=== PATIENT | male | born 1985 | race American Indian/Alaskan Native ===

== ENCOUNTER 2016-10-31 00:53 | Emergency (ER) | payer SELFPAY ==
[2016-10-31 02:18] LABS: Basophils % (Auto) 1.1 % (0.0-1.8); Eosinophils % (Auto) 0.5 % (0.0-4.3); Hematocrit 47.7 % (35.5-45.6); Hemoglobin 16.2 gm/dl (11.8-15.2); Mean Corpuscular HGB Conc 34 % (32-34); Mean Corpuscular Hemoglobin 31 pg (28-32); Mean Corpuscular Volume 93 fl (84-94); Red Blood Count 5.15 M/mm3 (3.65-5.03); Red Cell Distribution Width 13.7 % (13.2-15.2)
[2016-10-31 02:51] LABS: Platelet Count 169 K/mm3 (140-440)
[2016-10-31 03:01] LABS: Alanine Aminotransferase 14 units/L (7-56); Albumin 4.5 g/dL (3.9-5); Albumin/Globulin Ratio 1.6 %; Alkaline Phosphatase 108 units/L (35-129); Anion Gap 19 mmol/L; BUN/Creatinine Ratio 13.75; Blood Urea Nitrogen 11 mg/dL (9-20); Calcium 9.5 mg/dL (8.4-10.2); Carbon Dioxide 27 mmol/L (22-30); Chloride 93.3 mmol/L (98-107); Glucose 103 mg/dL (75-100); Lipase 12 units/L (13-60); Potassium 3.5 mmol/L (3.6-5.0); Sodium 136 mmol/L (137-145); Total Protein 7.3 g/dL (6.3-8.2)
[2016-10-31 03:50] LABS: Bilirubin,Urine NEG (Negative); Blood,Urine SM (Negative); Ketones,Urine 20 mg/dL (Negative); Leukocyte Esterase,Urine MOD (Negative); Mucus,Urine 1+ /HPF; Nitrite,Urine NEG (Negative); Protein,Urine <15 mg/dL mg/dL (Negative)
[2016-10-31 05:24] VITALS: BP 108/72
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
--- NOTE | 2016-11-02 00:58 | ED Elopement Review ---
ED Pt Elopement review - Results review Lab results: Laboratory Tests 10/31/16 10/31/16 10/31/16 01:49 01:49 03:05 WBC 9.0 RBC 5.15 H Hgb 16.2 H Hct 47.7 H MCV 93 MCH 31 MCHC 34 RDW 13.7 Plt Count 169 Lymph % (Auto) 34.7 [place] % (Auto) 10.8 H Eos % (Auto) 0.5 Baso % (Auto) 1.1 Lymph # 3.1 [place] # 1.0 H Eos # 0.0 Baso # 0.1 Seg Neutrophils % 52.9 Seg Neutrophils # 4.8 Sodium 136 L Potassium 3.5 L Chloride 93.3 L Carbon Dioxide 27 Anion Gap 19 BUN 11 Creatinine 0.8 Estimated GFR > 60 BUN/Creatinine Ratio 13.75 Glucose 103 H Calcium 9.5 Total Bilirubin 2.20 H AST 15 ALT 14 Alkaline Phosphatase 108 Total Protein 7.3 Albumin 4.5 Albumin/Globulin Ratio 1.6 Lipase 12 L Urine Color Yellow Urine Turbidity Clear Urine pH 6.0 Ur Specific [place] 1.014 Urine Protein <15 mg/dl Urine Glucose (UA) Neg Urine Ketones 20 Urine Blood Sm Urine Nitrite Neg Urine Bilirubin Neg Urine Urobilinogen 4.0 Ur Leukocyte Esterase Mod Urine WBC (Auto) 18.0 H Urine RBC (Auto) 2.0 U Epithel Cells (Auto) < 1.0 Urine Mucus 1+ - Call Back decision Pt Call Back Decision: Pt to F/U with PMD (patient follow up for further evaluation of elevated total bilirubin)
== END 2016-10-31 11:10 | disposition left against medical advice (07) ==
LOC: ED 00:53
DX: R11.2 Nausea with vomiting, unspecified (principal); R10.9 Unspecified abdominal pain; F17.200 Nicotine dependence, unspecified, uncomplicated; Z53.21 Procedure and treatment not carried out due to patient leaving prior to being seen by health care provider
CPT/HCPCS: 36415; 74020; 80053; 81001; 83690; 85025

== ENCOUNTER 2016-11-25 21:46 | Emergency (ER) | payer SELFPAY ==
[2016-11-25] MEDS ORDERED: MORPHINE IV ONE (23:00)
[2016-11-25] MEDS ORDERED: NACL 0.9% 1000 ML 1,000 ML IV ONE (23:00)
[2016-11-25] MEDS ORDERED: ZOFRAN IV ONE (23:00)
[2016-11-25 23:16] LABS: Basophils % (Auto) 0.5 % (0.0-1.8); Hematocrit 46.2 % (35.5-45.6); Hemoglobin 15.5 gm/dl (11.8-15.2); Mean Corpuscular HGB Conc 34 % (32-34); Mean Corpuscular Hemoglobin 32 pg (28-32); Mean Corpuscular Volume 94 fl (84-94); Platelet Count 170 K/mm3 (140-440); Red Cell Distribution Width 13.9 % (13.2-15.2); White Blood Count 8.5 K/mm3 (4.5-11.0)
[2016-11-25 23:26] LABS: Alanine Aminotransferase 12 units/L (7-56); Albumin 4.6 g/dL (3.9-5); Albumin/Globulin Ratio 1.3 %; Alkaline Phosphatase 97 units/L (35-129); Anion Gap 23 mmol/L; Blood Urea Nitrogen 16 mg/dL (9-20); Calcium 9.7 mg/dL (8.4-10.2); Carbon Dioxide 19 mmol/L (22-30); Chloride 95.9 mmol/L (98-107); Glucose 102 mg/dL (75-100); Lipase 14 units/L (13-60); Potassium 3.8 mmol/L (3.6-5.0); Sodium 134 mmol/L (137-145); Total Protein 8.2 g/dL (6.3-8.2)
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
[2016-11-26] MEDS ORDERED: PEPCID IV ONE (00:24)
[2016-11-26 00:58] LABS: INR 1.06 (0.87-1.13); Partial Thromboplastin Time 27.1 Sec. (24.2-36.6)
--- NOTE | 2016-11-26 02:11 | XRay Report ---
FINAL REPORT PROCEDURE: XR ABD SERIES W CXR 1V TECHNIQUE: Abdominal series complete, including supine and upright AP views of the abdomen and frontal chest. HISTORY: Diffuse abd pain COMPARISON: No prior studies are available for comparison. FINDINGS: Heart: Normal. Mediastinum/Vessels: Normal. Lungs/Pleural space: Normal. Bowel gas pattern: Nonobstructive. Masses or calcifications: There is a metallic density overlying the left sacral base region.. Bony structures: No acute osseous abnormality. Other: No free intraperitoneal air. IMPRESSION: No acute abnormality.
[2016-11-26 02:48] VITALS: BP 114/70
== END 2016-11-26 02:47 | disposition home or self-care (01) ==
LOC: ED 21:46
DX: R10.12 Left upper quadrant pain (principal); F17.200 Nicotine dependence, unspecified, uncomplicated; F12.10 Cannabis abuse, uncomplicated
CPT/HCPCS: 36415; 74022; 80053; 83690; 85025; 85610; 85730; 96361; 96374; 96375; 99284; J2270; J2405; J7030

== ENCOUNTER 2017-02-23 10:48 | Emergency (ER) | payer SELFPAY ==
[2017-02-23 11:57] LABS: Eosinophils % (Auto) 0.2 % (0.0-4.3); Hematocrit 45.2 % (35.5-45.6); Hemoglobin 15.5 gm/dl (11.8-15.2); Mean Corpuscular HGB Conc 34 % (32-34); Mean Corpuscular Hemoglobin 32 pg (28-32); Mean Corpuscular Volume 94 fl (84-94); Red Blood Count 4.78 M/mm3 (3.65-5.03); Red Cell Distribution Width 14.2 % (13.2-15.2); White Blood Count 7.8 K/mm3 (4.5-11.0)
[2017-02-23 12:01] LABS: Platelet Count 149 K/mm3 (140-440)
[2017-02-23 12:16] LABS: Alanine Aminotransferase 11 units/L (7-56); Albumin 4.1 g/dL (3.9-5); Albumin/Globulin Ratio 1.2 %; Alkaline Phosphatase 82 units/L (35-129); Anion Gap 17 mmol/L; BUN/Creatinine Ratio 24.28; Blood Urea Nitrogen 17 mg/dL (9-20); Calcium 8.8 mg/dL (8.4-10.2); Carbon Dioxide 25 mmol/L (22-30); Chloride 94.7 mmol/L (98-107); Glucose 92 mg/dL (75-100); Lipase 15 units/L (13-60); Sodium 133 mmol/L (137-145); Total Protein 7.4 g/dL (6.3-8.2)
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
[2017-02-23] MEDS ORDERED: MORPHINE IV ONE (12:35)
[2017-02-23] MEDS ORDERED: ZOFRAN IV ONE ×2 (12:35→16:54)
[2017-02-23 12:51] LABS: Bacteria,Urine 3+ /HPF (Negative); Bilirubin,Urine NEG (Negative); Blood,Urine NEG (Negative); Ketones,Urine 20 mg/dL (Negative); Leukocyte Esterase,Urine SM (Negative); Mucus,Urine FEW /HPF; Nitrite,Urine NEG (Negative); Protein,Urine <15 mg/dL mg/dL (Negative)
[2017-02-23] MEDS ORDERED: NACL ONE (15:36)
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
[2017-02-23 17:45] VITALS: BP 120/81
== END 2017-02-23 18:50 | disposition home or self-care (01) ==
LOC: ED 10:48
DX: E87.1 Hypo-osmolality and hyponatremia (principal); R10.84 Generalized abdominal pain; F17.200 Nicotine dependence, unspecified, uncomplicated; F12.10 Cannabis abuse, uncomplicated
CPT/HCPCS: 36415; 74177; 80053; 81001; 82140; 83690; 85025; 96374; 96375; 96376; 99284; J2270; J2405; Q9967

== ENCOUNTER 2017-05-15 19:52 | Emergency (ER) | payer SELFPAY | END 2017-05-15 20:23 | disposition left against medical advice (07) | LOC: ED 19:52 | DX: R11.2 Nausea with vomiting, unspecified (principal); Z53.21 Procedure and treatment not carried out due to patient leaving prior to being seen by health care provider ==

== ENCOUNTER 2017-09-08 11:56 | Emergency (ER) | payer MEDICAID ==
[2017-09-08 13:37] LABS: Basophils # (Auto) 0.1 K/mm3 (0.0-0.1); Eosinophils % (Auto) 0.4 % (0.0-4.3); Hemoglobin 15.1 gm/dl (11.8-15.2); Lymphocytes % (Auto) 32.6 % (13.4-35.0); Mean Corpuscular HGB Conc 33 % (32-34); Mean Corpuscular Hemoglobin 31 pg (28-32); Mean Corpuscular Volume 93 fl (84-94); Monocytes # (Auto) 0.4 K/mm3 (0.0-0.8); Monocytes % (Auto) 5.9 % (0.0-7.3); Red Blood Count 4.82 M/mm3 (3.65-5.03); Red Cell Distribution Width 13.8 % (13.2-15.2)
[2017-09-08 13:54] LABS: BUN/Creatinine Ratio 16; Blood Urea Nitrogen 14 mg/dL (9-20); Calcium 9.4 mg/dL (8.4-10.2); Hemolysis Index 4
[2017-09-08] MEDS ORDERED: MORPHINE IV ONE ×2 (14:20)
[2017-09-08] MEDS ORDERED: ZOFRAN IV ONE (14:20)
[2017-09-08 14:41] LABS: Bilirubin,Urine NEG (Negative); Blood,Urine NEG (Negative); Color,Urine Yellow (Yellow); Protein,Urine <15 mg/dL mg/dL (Negative); Urobilinogen,Urine < 2.0 mg/dL (<2.0)
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
[2017-09-08] MEDS ORDERED: NACL 0.9% 1000 ML 1,000 ML IV ONE (15:00)
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
[2017-09-08 15:19] VITALS: BP 127/69
[2017-09-08 15:26] LABS: Platelet Count 174 K/mm3 (140-440)
--- NOTE | 2017-09-08 17:10 | Cat Scan Report ---
FINAL REPORT EXAM: CT ABDOMEN PELVIS W CON HISTORY: abd pain, constipation, urine retention TECHNIQUE: Axial images were performed from the lung bases to the pubic symphysis following IV contrast administration. Multiplanar reformats are performed on the acquisition scanner. Total exam DLP 1194.66 mGy-cm Comparison: 07/20/2015 at which time there asymmetric fluid-filled distended bowel loops in the left side of the abdomen without definite obstruction identified. FINDINGS: Clear lung bases. Normal enhancement and appearance of the liver, spleen, pancreas, gallbladder, bilateral adrenal glands, and bilateral kidneys. Moderately distended gallbladder. The gastric body is decompressed. The gastric fundus is mildly distended. Cannot assess the gastric wall. There is mild motion degradation. Normal enhancement of the mesenteric vessels and aorta. There are slightly hyperdense renal medullary calcifications without definite stone disease identified. These hyperdensities appear to be vascular. Pre contrast images would be helpful in further assessing that finding. There is no free air. There is diffuse fecal retention. There is a suture margin in the right lower quadrant. There is shrapnel overlying the left posterior ilium. Urinary bladder is decompressed with a Mcclure catheter. There is air within the diffusely thick-walled urinary bladder. Lack of peritoneal fat limits the evaluation of the bowel. There is diffuse fecal retention in the sigmoid colon. There are fluid-filled bowel loops cephalad to the bladder with poor contrast delineation in this location. Delayed images demonstrate normal contrast excretion from both kidneys and normal filling of the urinary bladder. IMPRESSION: Limited exam with paucity of peritoneal fat. Marked fecal retention. Diffusely thick-walled urinary bladder is decompressed by Mcclure catheter. Recommend cystoscopy. Poorly delineated fluid-filled small bowel above the urinary bladder in the midline. Significant fecal retention. No free air or free fluid. Suture margin right lower quadrant. Collapsed gastric body and antrum.
== END 2017-09-08 17:31 | disposition left against medical advice (07) ==
LOC: ED 11:56
DX: R33.9 Retention of urine, unspecified (principal); K59.00 Constipation, unspecified; F17.200 Nicotine dependence, unspecified, uncomplicated
CPT/HCPCS: 36415; 51702; 74019; 74177; 80048; 81001; 85025; 87086; 96361; 96374; 96375; 99285; J2270; J2405; J7030; Q9967

== ENCOUNTER → 2017-10-04 01:56 | Emergency (ER) | payer MEDICAID | END | disposition left against medical advice (07) | LOC: ED 01:56 | DX: Z53.21 Procedure and treatment not carried out due to patient leaving prior to being seen by health care provider (principal) ==

== ENCOUNTER 2017-10-28 00:21 | Emergency (ER) | payer MEDICAID ==
[2017-10-28 01:26] VITALS: BP 120/81
[2017-10-28] MEDS ORDERED: ZOFRAN ODT ONE (01:38)
[2017-10-28] MEDS ORDERED: ZOFRAN ODT PO ONE (01:40)
[2017-10-28 01:51] LABS: Basophils # (Auto) 0.1 K/mm3 (0.0-0.1); Basophils % (Auto) 1.1 % (0.0-1.8); Eosinophils % (Auto) 0.2 % (0.0-4.3); Hematocrit 46.8 % (35.5-45.6); Hemoglobin 16.2 gm/dl (11.8-15.2); Lymphocytes # (Auto) 2.3 K/mm3 (1.2-5.4); Lymphocytes % (Auto) 23.1 % (13.4-35.0); Mean Corpuscular HGB Conc 35 % (32-34); Mean Corpuscular Hemoglobin 32 pg (28-32); Mean Corpuscular Volume 93 fl (84-94); Monocytes # (Auto) 0.5 K/mm3 (0.0-0.8); Monocytes % (Auto) 5.3 % (0.0-7.3); Red Blood Count 5.07 M/mm3 (3.65-5.03); Red Cell Distribution Width 13.6 % (13.2-15.2)
[2017-10-28 01:53] LABS: Platelet Count 180 K/mm3 (140-440)
[2017-10-28 02:09] LABS: Alanine Aminotransferase 15 units/L (7-56); Albumin 4.5 g/dL (3.9-5); BUN/Creatinine Ratio 30; Blood Urea Nitrogen 21 mg/dL (9-20); Calcium 9.5 mg/dL (8.4-10.2); Hemolysis Index 66
== END 2017-10-28 06:00 | disposition left against medical advice (07) ==
LOC: ED 00:21
DX: R10.9 Unspecified abdominal pain (principal); Z53.21 Procedure and treatment not carried out due to patient leaving prior to being seen by health care provider
CPT/HCPCS: 36415; 80053; 85025; Q0162

== ENCOUNTER 2020-01-21 18:28 | Emergency (ER) | payer MEDICAID ==
[2020-01-21] MEDS ORDERED: IBUPROFEN 800 MG TAB PO ONE (23:41)
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
[2020-01-22 00:06] LABS: Mucus,Urine 2+ /HPF
[2020-01-22 00:11] LABS: Bilirubin,Urine NEG (Negative); Blood,Urine NEG (Negative); Color,Urine Yellow (Yellow); Protein,Urine <15 mg/dL mg/dL (Negative)
[2020-01-22] MEDS ORDERED: AMOXICILLIN/K CLAV 875/125MG TAB PO ONE (00:31)
[2020-01-22 01:47] VITALS: BP 110/64
== END 2020-01-22 01:48 | disposition home or self-care (01) ==
LOC: ED 18:28
DX: N39.0 Urinary tract infection, site not specified (principal); K04.7 Periapical abscess without sinus; F17.200 Nicotine dependence, unspecified, uncomplicated; F12.10 Cannabis abuse, uncomplicated; Z79.899 Other long term (current) drug therapy; Z98.890 Other specified postprocedural states
CPT/HCPCS: 81001; 87086; 99283

== ENCOUNTER 2020-09-24 04:54 | Emergency (ER) | payer BC, MEDICAID ==
[2020-09-24] MEDS ORDERED: MORPHINE 4 MG/1 ML INJ IV ONE (05:16)
[2020-09-24 05:54] LABS: Basophils # (Auto) 0.1 K/mm3 (0.0-0.1); Basophils % (Auto) 0.7 % (0.0-1.8); Eosinophils % (Auto) 0.2 % (0.0-4.3); Hematocrit 43.8 % (35.5-45.6); Hemoglobin 14.7 gm/dl (11.8-15.2); Lymphocytes # (Auto) 1.4 K/mm3 (1.2-5.4); Lymphocytes % (Auto) 17.3 % (13.4-35.0); Mean Corpuscular HGB Conc 34 % (32-34); Mean Corpuscular Volume 96 fl (84-94); Monocytes # (Auto) 0.5 K/mm3 (0.0-0.8); Monocytes % (Auto) 5.9 % (0.0-7.3); Red Blood Count 4.56 M/mm3 (3.65-5.03); Red Cell Distribution Width 14.1 % (13.2-15.2)
[2020-09-24 05:56] LABS: Platelet Count 170 K/mm3 (140-440)
[2020-09-24 06:12] LABS: Alanine Aminotransferase 14 units/L (7-56); Albumin 4.4 g/dL (3.9-5); BUN/Creatinine Ratio 11; Bilirubin,Direct 0.2 mg/dL (0-0.2); Blood Urea Nitrogen 9 mg/dL (9-20); Calcium 9.2 mg/dL (8.4-10.2); Hemolysis Index 61
[2020-09-24] MEDS ORDERED: ONDANSETRON 4 MG/2 ML INJ IV ONE (07:35)
[2020-09-24] MEDS ORDERED: SODIUM CHLORIDE 0.9% 1000 ML 1,000 ML IV ONE (07:35)
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
[2020-09-24 10:22] LABS: Amorphous Crystals,Urine 3+; Mucus,Urine FEW /HPF
[2020-09-24 10:24] LABS: Bilirubin,Urine NEG (Negative); Blood,Urine NEG (Negative); Color,Urine Amber (Yellow)
[2020-09-24 10:25] LABS: Protein,Urine >500 mg/dL (Negative)
[2020-09-24 11:41] VITALS: BP 113/72
== END 2020-09-24 11:38 | disposition home or self-care (01) ==
LOC: ED 04:54
DX: R10.84 Generalized abdominal pain (principal); F17.200 Nicotine dependence, unspecified, uncomplicated; Z79.899 Other long term (current) drug therapy
CPT/HCPCS: 36415; 74177; 80048; 80076; 81001; 83690; 85025; 96361; 96374; 96375; 99284; J2270; J2405; J7030; Q9967